=== PATIENT | female | born 1950 | race Native Hawaiian/Other Pacific Islander ===

== ENCOUNTER 2018-01-17 08:53 | Day surgery (SDC) | payer OTHER ==
[2015-07-15 07:01] VITALS: BMI 22.1
[~2018-01-17 08:53] MED LIST: Lidocaine Hydrochloride 5 ML INJ ONE
--- NOTE | 2018-01-17 10:31 | PCM.SURG1 ---
Surgeon's Initial Post Op Note - Surgeon's Notes Surgeon: Hardy Gill MD [employer] Drafter: NONE Type of Anesthesia: Local Pre-Operative Diagnosis: Bilateral thyroid nodules Operative Findings: US showed a complex 1.3 cm right and complex 1.3 cm left thyroid nodule. Several subcentimeter nodules also present in right and left thyroid lobes. Post-Operative Diagnosis: Bilalteral thyroid nodules Operation Performed: US guided FNA of right and left thyroid nodules Specimen/Specimens Removed: 25 g FNA x 5 passes in each nodule including molecular studies. Estimated Blood Loss: EBL {In ML}: 1 Blood Products Given: N/A Drains Used: No Drains Post-Op Condition: Good Date of Surgery/Procedure: 01/17/18 Time of Surgery/Procedure: 10:30
--- NOTE | 2018-01-17 14:20 | US ---
PROCEDURE: Date of Procedure: 01/17/2018 PROCEDURE: 1. Ultrasound guided FNA of left thyroid nodule, CPT 15391 2. Ultrasound guided FNA of RIGHT thyroid nodule, 3. Ultrasound guidance for FNA, 56713 Medications: 3cc 1% Lidocaine HISTORY: Enlarged thyroid nodules. TECHNIQUE: Following informed consent and procedure time-out, a limited ultrasound patient's neck confirmed the presence of a 1.3 cm complex mixed solid and cystic left thyroid nodule. Also present is a complex, predominantly solid right thyroid nodule measuring 1.3 cm. After the patient's neck was prepped and draped in the usual sterile fashion, the skin was anesthetized with 1% lidocaine. Ultrasound-guided fine needle aspiration was then performed of the dominant left thyroid nodule. A total of 5 passes were made into the nodule with 25 gauge needle under ultrasound guidance. The FNA specimen was sent for routine pathology and genetics. Ultrasound guided FNA was then performed of the dominant right thyroid nodule. Again 5passes were made into the nodule with 25 gauge needle. The FNA specimen was sent for routine pathology and genetics. Post biopsy ultrasound showed no hematoma. IMPRESSION: Ultrasound-guided FNA of the dominant right and left thyroid nodules.
== END 2018-01-17 10:30 ==
LOC: C.SPRAD 08:53
PROVIDERS: ATTEND Radiology Vascular & Interventional Radiology
DX: E04.2 Nontoxic multinodular goiter (principal)